=== PATIENT | male | born 1975 | race African-American/Black ===

== ENCOUNTER 2019-11-05 12:54 | Emergency (ER) | payer SELFPAY | END 2019-11-05 13:50 | disposition home or self-care (01) | LOC: ERS 12:54 | DX: I10 Essential (primary) hypertension (principal); F17.210 Nicotine dependence, cigarettes, uncomplicated; Z79.899 Other long term (current) drug therapy | CPT/HCPCS: 99283 ==

== ENCOUNTER 2020-09-29 00:38 | Observation (INO) | payer BC, SELFPAY ==
[2020-09-29] MEDS ORDERED: Nitroglycerin 2% Ointment 1 INCH/1 GM Packet ONE (01:01)
[2020-09-29] MEDS ORDERED: Aspirin Chewable 81 MG TAB ONE (01:01)
[2020-09-29] MEDS ORDERED: Morphine 4 MG/ML VIAL ONE ×2 (01:09→02:31)
[2020-09-29 01:13] LABS: #Basophils 0.1 thou/uL (0.0-0.2); #Eosinphils 0.6 thou/uL (0.0-0.7); #Lymphocytes 3.7 thou/uL (1.20-3.40); #Monocytes 0.7 thou/uL (0.11-0.59); #Neutrophils 4.3 thou/uL (1.40-6.50); %Eosinophils 6.1 % (0.0-10.0); %Lymphocytes 39.8 % (21.0-51.0); %Monocytes 6.9 % (0.0-10.0); %Neutrophils 46.2 % (42.0-75.0); Hemoglobin 14.2 g/dL (14.0-18.0); Mean Corpuscular HGB CONC 33.7 g/dL (32.0-36.0); Mean Corpuscular Hemoglobin 32.1 pg (27.0-31.0); Mean Corpuscular Volume 95.3 fL (78.0-98.0); Mean Platelet Volume 8.2 fL (7.4-10.4); Platelet Count 193 thou/uL (130-400); RBC Distribution Width 13.1 % (11.5-14.5); Red Blood Cell (RBC) Count 4.43 mill/uL (4.70-6.10); White Blood Cell (WBC) Count 9.4 thou/uL (4.8-10.8)
[2020-09-29 01:53] LABS: ALT (SGPT) 27 U/L (8-55); AST (SGOT) 21 U/L (5-34); Albumin 4.1 g/dL (3.5-5.0); Alkaline Phosphatase 63 U/L (40-110); Anion Gap 14 mmol/L (10-20); BUN (Urea Nitrogen) 18 mg/dL (8.9-20.6); Bilirubin, Total 0.2 mg/dL (0.2-1.2); CK (CPK) 322 U/L (30-200); Calc. Creatinine Clearance 0 mL/min (70-130); Calcium 9.1 mg/dL (7.8-10.44); Carbon Dioxide 25 mmol/L (22-29); Chloride 104 mmol/L (98-107); Globulin 3.2 g/dL (2.4-3.5); Glucose 229 mg/dL (70-105); Lipase 49 U/L (8-78); Protein, Total 7.3 g/dL (6.0-8.3); Sodium 139 mmol/L (136-145)
--- NOTE | 2020-09-29 02:37 | PDOC.HHP ---
Hospitalist HPI Chest pain History of Present Illness: PCP: None The patient is a 45-year-old male with a past medical history significant for HTN, CAD (1 stent), and obesity that presents to the emergency department for the above complaint. The patient reports the acute onset of chest pain while sitting at home this evening at approximately 2300. The pain is located on the left side of his chest, described as sharp, constant, exacerbated and relieved by nothing. The patient reports that his chest pain has mildly improved since coming to the emergency department. He states that it is similar to when he had a heart attack approximately 12 years ago. He has been noncompliant with his aspirin. He denies heart palpitations, lightheadedness or swelling to his lower extremities. He denies cough, hemoptysis, wheezing. No history of DVT/PE. No history of COPD/asthma. He does have a stent in his right leg, placed appr oximately 12 to 13 years ago. He has not on any blood thinners and is noncompliant with aspirin therapy. He denies abdominal pain, nausea, vomiting or diarrhea. No recent illness, fever or chills. ED Course: VITAL SIGNS TueSep 29, 2020 00:40 ANNY Hernandez Julia BP: 170/126, Pulse: 80, Resp: 20, Temp: 98.0 (Oral), Pain: 10, O2 sat: 97 on (Room Air), Time: 09/29/2020 00:40. VITAL SIGNS TueSep 29, 2020 01:58 ANNY Fields Taylor BP: 150/93, MAP: 112, Pulse: 76, Resp: 20, Pain: 7, O2 sat: 98 on (Room Air), Time: 09/29/2020 01:58. EKG NSR, nonspecific. CXR appears to have cardiomegaly, no acute cardiopulmonary process. Initial troponin 0.018, CK 322 Glucose 229 Medication administration: morphine injection 4 mg IV Push Given 01:09/29/2020 Nitro-Bid transdermal 1 inch Topical Given :04 09/29/2020 aspirin oral 324 mg Oral Given :09/29/2020 Allergies/Adverse Reactions: Allergy/AdvReac Type Severity Reaction Status Date / Time No Known Allergies Allergy Unverified 09/29/20 02:37 Home Medications: Medication Instructions Recorded Confirmed Type Amlodipine [Norvasc] 10 mg PO DAILY 09/29/20 09/29/20 History Metoprolol Tartrate 50 mg PO BID 09/29/20 09/29/20 History Past History: PMH: CAD x1, TX, HTN, PVD??? PSX: Stent x1 to right lower extremity Social Hx: Half pack per day smoker x5 years. Illicit drug use or heavy alcohol intake. Independent. Family history: Mother contributory for cardiac disease Hospitalist HPI ROS All other systems reviewed; all pertinent +/- noted in HPI/Subj Hospitalist Exam General Appearance: NAD, awake alert. negative: ill appearing Eye: anicteric sclera Heart: RRR, no murmur, no gallops, no rubs, normal peripheral pulses Respiratory: CTAB, no wheezes, no rales, no ronchi, normal chest expansion, no tachypnea Gastrointestinal: soft, non-tender, non-distended, normal bowel sounds, no guarding, no rigidity Extremities: no cyanosis, no edema Neurological: cranial nerve grossly intact, no focal deficits Musculoskeletal: normal tone, normal strength Psychiatric: normal affect, A&O x 3 Hospitalist Results Result Diagrams: 09/29/20 00:57 09/29/20 00:57 Lab results: Laboratory Last Values WBC 9.4 thou/uL (4.8-10.8) 09/29/20 00:57 RBC 4.43 mill/uL (4.70-6.10) L 09/29/20 00:57 Hgb 14.2 g/dL (14.0-18.0) 09/29/20 00:57 Hct 42.2 % (42.0-52.0) 09/29/20 00:57 MCV 95.3 fL (78.0-98.0) 09/29/20 00:57 MCH 32.1 pg (27.0-31.0) H 09/29/20 00:57 MCHC 33.7 g/dL (32.0-36.0) 09/29/20 00:57 RDW 13.1 % (11.5-14.5) 09/29/20 00:57 Plt Count 193 thou/uL (130-400) 09/29/20 00:57 MPV 8.2 fL (7.4-10.4) 09/29/20 00:57 Neutrophils % 46.2 % (42.0-75.0) 09/29/20 00:57 Lymphocytes % 39.8 % (21.0-51.0) 09/29/20 00:57 Monocytes % 6.9 % (0.0-10.0) 09/29/20 00:57 Eosinophils % 6.1 % (0.0-10.0) 09/29/20 00:57 Basophils % 1.0 % (0.0-1.0) 09/29/20 00:57 Neutrophils # 4.3 thou/uL (1.40-6.50) 09/29/20 00:57 Lymphocytes # 3.7 thou/uL (1.20-3.40) H 09/29/20 00:57 Monocytes # 0.7 thou/uL (0.11-0.59) H 09/29/20 00:57 Eosinophils # 0.6 thou/uL (0.0-0.7) 09/29/20 00:57 Basophils # 0.1 thou/uL (0.0-0.2) 09/29/20 00:57 Sodium 139 mmol/L (136-145) 09/29/20 00:57 Potassium 4.0 mmol/L (3.5-5.1) 09/29/20 00:57 Chloride 104 mmol/L (98-107) 09/29/20 00:57 Carbon Dioxide 25 mmol/L (22-29) 09/29/20 00:57 Anion Gap 14 mmol/L (10-20) 09/29/20 00:57 BUN 18 mg/dL (8.9-20.6) 09/29/20 00:57 Creatinine 1.27 mg/dL (0.7-1.3) 09/29/20 00:57 Estimated GFR (MDRD) 74 09/29/20 00:57 Glucose 229 mg/dL (70-105) H 09/29/20 00:57 Calcium 9.1 mg/dL (7.8-10.44) 09/29/20 00:57 Total Bilirubin 0.2 mg/dL (0.2-1.2) 09/29/20 00:57 AST 21 U/L (5-34) 09/29/20 00:57 ALT 27 U/L (8-55) 09/29/20 00:57 Alkaline Phosphatase 63 U/L (40-110) 09/29/20 00:57 Creatine Kinase 322 U/L (30-200) H 09/29/20 00:57 Troponin I 0.018 ng/mL (< 0.028) 09/29/20 00:57 Serum Total Protein 7.3 g/dL (6.0-8.3) 09/29/20 00:57 Albumin 4.1 g/dL (3.5-5.0) 09/29/20 00:57 Globulin 3.2 g/dL (2.4-3.5) 09/29/20 00:57 Albumin/Globulin Ratio 1.3 g/dL (1.2-2.2) 09/29/20 00:57 Lipase 49 U/L (8-78) 09/29/20 00:57 EKG Status: image reviewed by me Additional Comments: NSR, nonspecific EKG Chest x-ray Status: pending Additional Comments: Appears to have no acute cardiopulmonary process. Hospitalist H&P A/P (1) Chest pain Code(s): R07.9 - CHEST PAIN, UNSPECIFIED Status: Acute (2) Hypertensive urgency Code(s): I16.0 - HYPERTENSIVE URGENCY Status: Acute (3) Hyperglycemia Code(s): R73.9 - HYPERGLYCEMIA, UNSPECIFIED Status: Acute (4) CAD (coronary artery disease) Code(s): I25.10 - ATHSCL HEART DISEASE OF [place] CORONARY ARTERY W/O ANG PCTRS Status: Chronic (5) PVD (peripheral vascular disease) Code(s): I73.9 - PERIPHERAL VASCULAR DISEASE, UNSPECIFIED Status: Chronic (6) Tobacco abuse Code(s): Z72.0 - TOBACCO USE Status: Chronic (7) HTN (hypertension) Code(s): I10 - ESSENTIAL (PRIMARY) HYPERTENSION Status: Chronic (8) Obesity Code(s): E66.9 - OBESITY, UNSPECIFIED Status: Chronic Plan: A patient with CAD and previous TX who is noncompliant with aspirin presents for chest pain. EKG nonspecific. CXR no acute process. Initial troponin 0.018. Given Nitropaste, aspirin, morphine in ED. Symptoms mildly improved in ED. #Chest pain Heart score 5 Reports pain is similar to previous TX (12 years ago) Continue aspirin, Nitropaste and morphine as needed. Start home beta-bj. Start high intensity statin. Trend troponins, check TSH, FLP, mag level. N.p.o. except meds. Consult cardiology. Will repeat EKG. #Hypertensive urgency Presented BP 170/126 Improved with Nitropaste. Restart home dose metoprolol and amlodipine. Monitor BP. #Hyperglycemia Presented BG 229 Check hemoglobin A1c. #CAD Stent x1 (12 years ago?) Noncompliant with aspirin at home. Compliant with metoprolol at home. Continue aspirin and restart metoprolol. #PVD History stent to right leg (12-13 years ago?) #Tobacco abuse Half pack per day x5-year habit. Unwilling to quit. He was counseled about tobacco cessation. #HTN Presented hypertensive. Restart home dose metoprolol and Norvasc. #Obesity Counseled on lifestyle changes. SCDs for DVT prophylaxis. GI prophylaxis. CODE STATUS full code. Discussed the case with attending physician, Dr. Quiles, who agrees with plan of care.
[2020-09-29] MEDS ORDERED: Nitroglycerin 0.4 MG TAB (25 Tab Bottle) SL PRN (03:08)
[2020-09-29] MEDS ORDERED: Ondansetron PF 4 MG/2 ML Vial IVP PRN (03:12)
[2020-09-29] MEDS ORDERED: Ondansetron ODT 4 MG TAB PO PRN (03:12)
[2020-09-29] MEDS ORDERED: Calcium Carbonate 500 MG ChewTAB PO PRN (03:12)
[2020-09-29] MEDS ORDERED: Acetaminophen 325 MG TAB PO PRN (03:12)
[2020-09-29] MEDS ORDERED: Morphine 2 MG/ML VIAL SLOW IVP PRN (03:14)
[2020-09-29 04:26] LABS: Hemoglobin A1c 6.7 % (4.0-6.0)
[2020-09-29 04:39] LABS: Cardiac Risk 3.9 (Less than 4.5); Magnesium 1.9 mg/dL (1.6-2.6)
[2020-09-29 04:43] LABS: Troponin I 0.034 ng/mL (< 0.028)
[2020-09-29] MEDS ORDERED: HumaLOG 300 UNITS/3 ML VIAL SC PRN ×2 (04:48)
[2020-09-29] MEDS ORDERED: Dextrose 50% Abboject 50 ML SYRINGE SLOW IVP PRN (04:48)
[2020-09-29] MEDS ORDERED: Dextrose 5% in Water 1,000 ML IV PRN (04:48)
[2020-09-29 04:55] VITALS: BMI 45.4
--- NOTE | 2020-09-29 07:59 | RAD ---
Portable chest: HISTORY: Chest pain COMPARISON: none FINDINGS: Lung [place] are clear. Heart and mediastinum appear unremarkable. Vascularity is normal. Visualized osseous structures unremarkable. IMPRESSION: No acute finding
[2020-09-29] MEDS ORDERED: Regadenoson 0.4 MG/5 ML SYRINGE ONE (08:58)
[2020-09-29] MEDS: Metoprolol Tartrate 50 MG TAB PO SCH ×2 (09:34→20:46)
[2020-09-29] MEDS: Amlodipine 10 MG TAB PO SCH (09:34)
[2020-09-29] MEDS: Aspirin Chewable 81 MG TAB PO SCH (09:34)
[2020-09-29] MEDS: Nitroglycerin 2% Ointment 1 INCH/1 GM Packet TOP SCH ×2 (09:38→17:24)
--- NOTE | 2020-09-29 10:03 | CON ---
DATE OF CONSULTATION: HISTORY OF PRESENT ILLNESS: The patient is a 45-year-old gentleman, who presents with left-sided chest discomfort. The patient has a long history of coronary artery disease. The patient was seen in 2008 with chest pain. He underwent a cardiac catheterization. He was found to have normal left ventricular systolic function. Estimated ejection 55% to 60%. There is a ramus vessel with a 50% stenosis. Left circumflex had a 99% distal stenosis. The right coronary had a 50% proximal stenosis, 60% mid stenosis, and 50% PDA stenosis. The patient subsequently underwent PTCA and stent placement into the left circumflex artery. The patient unfortunately did not come for followup. He has been noncompliant with his medications and followup. The patient was in his usual state of health when he developed left-sided chest discomfort. This lasted for approximately 4 hours. He came to the emergency room for further evaluation. The patient denies having any present chest discomfort. PAST MEDICAL HISTORY: 1. Coronary artery disease. 2. Hypertension. 3. Dyslipidemia. PAST SURGICAL HISTORY: None. SOCIAL HISTORY: Smokes half pack per day. MEDICATIONS: 1. Amlodipine 10 daily. 2. Metoprolol 50 b.i.d. FAMILY HISTORY: Mother had coronary artery disease. SOCIAL HISTORY: He smokes half pack per day. ALLERGIES: NONE. REVIEW OF SYSTEMS: Ten-point system otherwise unremarkable. PHYSICAL EXAMINATION: GENERAL: Obese gentleman, in no acute distress. VITAL SIGNS: Blood pressure of 142/84. NECK: No jugular venous distention. LUNGS: Clear to auscultation. HEART: Regular rate and rhythm. Normal S1, S2. ABDOMEN: Distended. EXTREMITIES: Show no edema. VASCULAR: Radial pulses 2+. LABORATORY DATA: Sodium 139, potassium 4.0, chloride 104, bicarbonate 25, BUN 18, creatinine 1.27. White blood cell count 9.4, hemoglobin 14.2, hematocrit 42.2, platelet are 193. EKG normal sinus rhythm with left first-degree AV block and left axis deviation. IMPRESSION: 1. Chest pain possibly due to ischemic heart disease. 2. Hypertensive crisis. 3. History of PTCA and stent placement to the left circumflex artery. 4. Dyslipidemia. 5. Diabetes mellitus. 6. Tobacco abuse. 7. Morbid obesity. This gentleman presents with chest pain suggestive of ischemic heart disease. His cardiac enzymes revealed no evidence of myocardial infarction. There were noted acute ST-T wave changes on his electrocardiogram. From a cardiac standpoint, I would recommend the patient undergo Cardiolite stress testing to evaluate for ischemia. The patient's chest pain may have been due to be either due to progressive coronary artery disease or malignant hypertension. The life- threatening consequences of noncompliance with his medication were explained to the patient. We will follow this patient with you through his hospitalization. Job ID: [id number] MTDD
[2020-09-29] MEDS: Atorvastatin Calcium 40 MG TAB PO SCH (20:46)
[2020-09-30] MEDS: Nitroglycerin 2% Ointment 1 INCH/1 GM Packet TOP SCH ×4 (01:20→16:09)
[2020-09-30] MEDS: Amlodipine 10 MG TAB PO SCH (09:22)
[2020-09-30] MEDS: Aspirin Chewable 81 MG TAB PO SCH (09:23)
[2020-09-30] MEDS: Metoprolol Tartrate 50 MG TAB PO SCH ×2 (09:23→20:29)
--- NOTE | 2020-09-30 09:55 | NM ---
EXAM: NM Cardiac Stress W EF WF PROVIDED CLINICAL HISTORY: Chest pain COMPARISON: None FINDINGS: This examination was performed as an pharmacological myocardial perfusion study after the administrat ion of Lexiscan intravenously. There is a fixed defect seen involving the inferior left ventricular wall. There is mild heterogeneit y involving the anterior and anteroseptal left ventricular wall on the stress acquisition without a significant reversible defect seen in a vascular distribution. This particular be mild left ventricul ar dilatation. Gated images demonstrate global hypokinesis much greater at the inferior left ventricular wall. There is diminished thickening involving the inferior left ventricular wall. Calcul ated left ventricular ejection fraction is 38%. IMPRESSION: 1. Abnormal myocardial perfusion study with a fixed defect in the inferior left ventricular wall rela christine to scarring. There is mild heterogeneity involving the anterior left ventricular wall without a significant reversible defect seen to suggest ischemia. 2. Decreased LV function with global hypokinesis much greater involving the inferior left ventricular wall in addition to absent thickening of the inferior wall. 3. Decreased LVEF of 38%.
[2020-09-30] MEDS ORDERED: Communication Order-Pharmacy FS SCH (10:15)
[2020-09-30] MEDS: hydrALAZINE 25 MG TAB PO SCH ×2 (14:06→20:30)
[2020-09-30 15:52] LABS: SARS-CoV-2 PCR by NAA Not Detected (NotDetected)
--- NOTE | 2020-09-30 16:40 | PDOC.HOSPP ---
- Subjective Encounter Date: 09/30/20 Subjective: Patient is chest pain-free. Seen by me after his nuclear stress test - Objective Vital Signs & Weight: Vital Signs (12 hours) Temp Pulse Resp BP Pulse Ox 09/30/20 16:00 98.2 F 68 16 147/83 H 99 09/30/20 11:38 98.2 F 59 L 18 159/103 H 99 09/30/20 09:22 72 09/30/20 08:00 98.5 F 72 17 148/101 H 97 Weight Weight 354 lb 3.2 oz I&O: 09/29/20 09/30/20 10/01/20 06:59 06:59 06:59 Intake Total 20 710 Balance 20 710 Result Diagrams: 09/29/20 00:57 09/29/20 00:57 Additional Labs: Accuchecks 09/30/20 09/30/20 09/30/20 16:04 10:16 05:36 POC Glucose 126 H 196 H 139 H 09/29/20 20:29 POC Glucose 149 H Hospitalist ROS - Medication Medications: Active Medications Generic Name Dose Route Start Last Admin Trade Name Kyleq PRN Reason Stop Dose Admin Amlodipine Besylate 10 mg 09/29/20 09:00 09/30/20 09:22 Amlodipine 10 Mg Tab PO 10 mg DAILY PAL Administration Aspirin 81 mg 09/29/20 09:00 09/30/20 09:23 Aspirin Chewable 81 Mg Tab PO 81 mg DAILY PAL Administration Atorvastatin Calcium 40 mg 09/29/20 21:00 09/29/20 20:46 Atorvastatin Calcium 40 Mg Tab PO 40 mg HS PAL Administration Hydralazine HCl 25 mg 09/30/20 15:00 09/30/20 14:06 Hydralazine 25 Mg Tab PO 25 mg TID PAL Administration Metoprolol Tartrate 50 mg 09/29/20 09:00 09/30/20 09:23 Metoprolol Tartrate 50 Mg Tab PO 50 mg BID PAL Administration Nitroglycerin 1 inch 09/30/20 09:00 09/30/20 16:09 Nitroglycerin 2% Ointment 1 Inch/1 Gm Packet TOP 1 inch 0100,0900,1700 PAL Administration Hospitalist Exam Vitals: Vital Signs (12 hours) Temp Pulse Resp BP Pulse Ox 09/30/20 16:00 98.2 F 68 16 147/83 H 99 09/30/20 11:38 98.2 F 59 L 18 159/103 H 99 09/30/20 09:22 72 09/30/20 08:00 98.5 F 72 17 148/101 H 97 Weight Weight 354 lb 3.2 oz General Appearance: NAD, awake alert Eye: anicteric sclera ENT: normocephalic atraumatic Neck: supple Heart: RRR, no murmur Respiratory: CTAB, no wheezes, no ronchi Gastrointestinal: soft, non-tender, non-distended Extremities: no clubbing, no edema Neurological: cranial nerve grossly intact Musculoskeletal: normal tone, normal strength Psychiatric: normal affect, normal behavior Hosp A/P (1) Chest pain Code(s): R07.9 - CHEST PAIN, UNSPECIFIED Status: Acute (2) Hyperglycemia Code(s): R73.9 - HYPERGLYCEMIA, UNSPECIFIED Status: Acute (3) Hypertensive urgency Code(s): I16.0 - HYPERTENSIVE URGENCY Status: Acute (4) CAD (coronary artery disease) Code(s): I25.10 - ATHSCL HEART DISEASE OF [place] CORONARY ARTERY W/O ANG PCTRS Status: Chronic (5) HTN (hypertension) Code(s): I10 - ESSENTIAL (PRIMARY) HYPERTENSION Status: Chronic (6) Obesity Code(s): E66.9 - OBESITY, UNSPECIFIED Status: Chronic Qualifiers: Body mass index: BMI 45.0-49.9 (7) PVD (peripheral vascular disease) Code(s): I73.9 - PERIPHERAL VASCULAR DISEASE, UNSPECIFIED Status: Chronic (8) Tobacco abuse Code(s): Z72.0 - TOBACCO USE Status: Chronic - Plan Assessment Patient is a 45 year old male with a PMH of CAD S/P PCI at age 33, HTN, HLD and tobacco smoking. He is currently admitted with another episode of chest pain. His nuclear stress test revealed areas of fixed defects in the inferior region of the left ventricle, areas of heterogeneity on the anterior wall and evidence of global hypokinesis. LVEF estimated at 38%. Patient is currently chest pain-free. Patient is known to the cardiology team. Chest pain CAD S/P PCI Chronic systolic CHF Type II DM - A1c 6.7 HTN HLD Tobacco smoking PLAN: Coronary angiogram tomorrow Continue medical therapy with ASA, statin, metoprolol Nitro patch on board BG is well controlled for inpatient status. No need for scheduled insulin BP control I anticipate discharge in 1 or 2 days
[2020-09-30] MEDS: Atorvastatin Calcium 40 MG TAB PO SCH (20:29)
[2020-10-01] MEDS: Nitroglycerin 2% Ointment 1 INCH/1 GM Packet TOP SCH ×2 (01:59→11:34)
[2020-10-01] MEDS: hydrALAZINE 25 MG TAB PO SCH (07:51)
[2020-10-01] MEDS: Aspirin Chewable 81 MG TAB PO SCH (07:51)
[2020-10-01] MEDS: Amlodipine 10 MG TAB PO SCH (07:51)
[2020-10-01] MEDS: Metoprolol Tartrate 50 MG TAB PO SCH (07:51)
[2020-10-01] MEDS ORDERED: Lidocaine 1% (PF) 30 ML VIAL ONE (08:06)
[2020-10-01] MEDS ORDERED: Midazolam HCl 2 mg/2 ml Vial ONE (08:35)
[2020-10-01] MEDS ORDERED: Sodium Chloride 0.9% 200 ML IV PRN (09:02)
[2020-10-01] MEDS ORDERED: Nitroglycerin 0.4 MG TAB (25 Tab Bottle) SL PRN (09:02)
[2020-10-01] MEDS ORDERED: Acetaminophen/Codeine 30-300mg Tablet PO PRN ×2 (09:02)
[2020-10-01] MEDS ORDERED: Iopamidol 370 76% 100 ML VIAL ONE (10:47)
[2020-10-01] MEDS ORDERED: Iopamidol 370 76% 50 ML VIAL FS ONE (10:47)
[2020-10-01] MEDS ORDERED: Clopidogrel Bisulfate 300 MG TAB PO SCH (12:15)
--- NOTE | 2020-10-01 12:52 | PDOC.DS.DS ---
Provider Date of Admission: 09/29/20 03:07 Date of Discharge: 10/01/20 Admitting Provider: Kwabena Quiles MD Consultations: Cardiology Primary Care Physician: NO PCP PROVIDER Course Hospital Course: Patient is a 45 year old male with a PMH of CAD S/P PCI at age 33, HTN, HLD and tobacco smoking. He was admitted with another episode of chest pain. His nuclear stress test revealed areas of fixed defects in the inferior region of the left ventricle, areas of heterogeneity on the anterior wall and evidence of global hypokinesis. LVEF estimated at 38%. He underwent LHC, no stent placed. He will be discharged on aggressive medical therapy. Discussed compliance with the patient. Resuscitation Status: 09/29/20 03:12 Resuscitation Status Routine Co-Sign Provider: Resuscitation Status: FULL: Full Resuscitation Discussed with: patient Lab Results: 09/29/20 00:57 09/29/20 00:57 Vitals: Vital Signs (12 hours) Temp Pulse Resp BP Pulse Ox 10/01/20 10:54 97.9 F 55 L 22 H 136/93 H 98 10/01/20 07:27 98.5 F 67 22 H 151/85 H 97 10/01/20 03:15 99 F 74 18 121/75 97 Weight Weight 354 lb 3.2 oz Physical Exam: The patient was seen and examined on the day of discharge. General Appearance: NAD, awake alert General - other findings: supine Eye: anicteric sclera ENT: normocephalic atraumatic Neck: supple Respiratory: CTAB, no wheezes, no ronchi Cardiovascular: RRR, no murmur, no rubs Gastrointestinal: soft, non-tender, non-distended Gastrointestinal - other findings: R groin intact w/o hematoma or tenderness Extremities: no edema Neurological: cranial nerve grossly intact Musculoskeletal: normal tone, normal strength PSYCH: normal affect, normal behavior Problem (1) Chest pain Code(s): R07.9 - CHEST PAIN, UNSPECIFIED Status: Acute (2) Hyperglycemia Code(s): R73.9 - HYPERGLYCEMIA, UNSPECIFIED Status: Acute (3) Hypertensive urgency Code(s): I16.0 - HYPERTENSIVE URGENCY Status: Acute (4) CAD (coronary artery disease) Code(s): I25.10 - ATHSCL HEART DISEASE OF [place] CORONARY ARTERY W/O ANG PCTRS Status: Chronic (5) HTN (hypertension) Code(s): I10 - ESSENTIAL (PRIMARY) HYPERTENSION Status: Chronic (6) Obesity Code(s): E66.9 - OBESITY, UNSPECIFIED Status: Chronic Qualifiers: Body mass index: BMI 45.0-49.9 (7) PVD (peripheral vascular disease) Code(s): I73.9 - PERIPHERAL VASCULAR DISEASE, UNSPECIFIED Status: Chronic (8) Tobacco abuse Code(s): Z72.0 - TOBACCO USE Status: Chronic Plan Prescriptions: Nitroglycerin [Nitrostat] 0.4 mg SL Q5MIN PRN #50 tab PRN Reason: Chest Pain Aspirin Chewable [Aspirin Chewable Tablet] 81 mg PO DAILY #30 tab Carvedilol [Coreg] 12.5 mg PO BID-WM #60 tab Sacubitril/Valsartan 49/51 [Entresto 49 mg-51 mg Tablet] 1 tab PO BID #60 tab Atorvastatin Calcium [Lipitor] 40 mg PO HS #30 tab Clopidogrel Bisulfate [Plavix] 75 mg PO DAILY #30 tab Home Medications: Medication Instructions Recorded Confirmed Type Amlodipine [Norvasc] 10 mg PO DAILY 09/29/20 09/29/20 History Aspirin Chewable [Aspirin Chewable 81 mg PO DAILY #30 tab 10/01/20 Rx Tablet] Atorvastatin Calcium [Lipitor] 40 mg PO HS #30 tab 10/01/20 Rx Carvedilol [Coreg] 12.5 mg PO BID-WM #60 tab 10/01/20 Rx Clopidogrel Bisulfate [Plavix] 75 mg PO DAILY #30 tab 10/01/20 Rx Nitroglycerin [Nitrostat] 0.4 mg SL Q5MIN PRN #50 tab 10/01/20 Rx Sacubitril/Valsartan 49/51 1 tab PO BID #60 tab 10/01/20 Rx [Entresto 49 mg-51 mg Tablet] Allergies: No Known Allergies Allergy (Unverified 09/29/20 02:37) Referrals: PROVIDER,NO PCP [Primary Care Provider] - Disposition: HOME Quality CORE MEASURES:: N/A
[2020-10-01 16:54] VITALS: BP 147/109; TEMP 98.3
[2020-10-01] MEDS ORDERED: Carvedilol 6.25 MG TAB PO SCH (17:00)
[2020-10-01] MEDS ORDERED: Sacubitril 49 MG/Valsartan 51 MG TABLET PO SCH (21:00)
[2020-10-02] MEDS ORDERED: Clopidogrel Bisulfate 75 MG TAB PO SCH (09:00)
== END 2020-10-01 15:25 | disposition home or self-care (01) ==
LOC: ERS 00:38 → 3SE 03:07
PROVIDERS: ADMIT Student in an Organized Health Care Education/Training Program; ATTEND Internal Medicine
PROC: 4A023N7 Measurement of Cardiac Sampling and Pressure, Left Heart, Percutaneous Approach (ICD-10-PCS; principal; 2020-10-01)
PROC: B2111ZZ Fluoroscopy of Multiple Coronary Arteries using Low Osmolar Contrast (ICD-10-PCS; 2020-10-01)
DX: I25.10 Atherosclerotic heart disease of native coronary artery without angina pectoris (principal); I25.82 Chronic total occlusion of coronary artery; R07.89 Other chest pain; E11.65 Type 2 diabetes mellitus with hyperglycemia; I16.0 Hypertensive urgency; I11.0 Hypertensive heart disease with heart failure; I50.22 Chronic systolic (congestive) heart failure; E11.51 Type 2 diabetes mellitus with diabetic peripheral angiopathy without gangrene; F17.210 Nicotine dependence, cigarettes, uncomplicated; I25.2 Old myocardial infarction; E78.5 Hyperlipidemia, unspecified; I44.0 Atrioventricular block, first degree; E66.01 Morbid (severe) obesity due to excess calories; Z68.42 Body mass index [BMI] 45.0-49.9, adult; Z91.14 Patient's other noncompliance with medication regimen; Z79.899 Other long term (current) drug therapy; Z95.5 Presence of coronary angioplasty implant and graft; Z95.820 Peripheral vascular angioplasty status with implants and grafts; Z20.822 Contact with and (suspected) exposure to COVID-19
CPT/HCPCS: 36415; 36416; 71045; 76942; 78452; 80053; 80061; 82550; 83036; 83690; 83735; 83880; 84443; 84484; 85025; 87635; 93005; 93010; 93017; 93306; 93458; 94760; 96374; 96376; 99152; 99153; A9500; G0378; J1644; J2001; J2250; J2270; J2785; Q9967; U0003; U0005